=== PATIENT | male | born 1990 | race Caucasian/White ===

== ENCOUNTER 2016-11-19 11:09 | Emergency (ER) | payer OTHER ==
[~2016-11-19] VITALS: Ht 172.7 cm; Wt 63.5 kg
[~2016-11-19 11:09] MED LIST: NOHOMEMEDICATIONS; TESSALON PERLE100 MG PO; ZOFRAN ODT4 MG PO; ZPAK PO
[2016-11-19 11:12] VITALS: BP 141/88
[2016-11-19] MEDS ORDERED: PREDNISONE 20 M20 MG PO (11:49)
== END 2016-11-19 11:53 | disposition home or self-care (01) ==
LOC: ER 11:09
DX: L73.9 Follicular disorder, unspecified (principal); L29.9 Pruritus, unspecified; F17.210 Nicotine dependence, cigarettes, uncomplicated